=== PATIENT | male | born 1955 ===

== ENCOUNTER 2020-08-18 06:00 | Outpatient (RCR) | payer MEDICARE, MEDICAID, SELFPAY | END 2020-09-09 23:00 | disposition home or self-care (01) | LOC: SST 06:00 | PROVIDERS: Referring Provider Internal Medicine; Visit Provider Internal Medicine | DX: D49.6 Neoplasm of unspecified behavior of brain (principal); Z96.89 Presence of other specified functional implants | CPT/HCPCS: 92607; 92608 ==